=== PATIENT | female | born 1965 | race Caucasian/White ===

== ENCOUNTER → 2017-01-10 | Outpatient (CLI) | payer BC ==
[~2017-01-10] MED LIST: INSULIN PUMP; LISI10TA2 PO; PANT40TA PO; SUCR1TAB PO
== END ==
LOC: RAD 15:01
PROVIDERS: ATTEND Internal Medicine
DX: Z12.31 Encounter for screening mammogram for malignant neoplasm of breast (principal)
CPT/HCPCS: 77067

== ENCOUNTER → 2018-01-19 | Outpatient (CLI) | payer BC ==
--- NOTE | 2018-01-19 15:40 | Diagnostic Imaging Report ---
INDICATION: Routine screening. COMPARISON: Comparison is made with prior exams from 01/10/2017 and 11/30/2015. TECHNIQUE: 2D and 3D bilateral screening mammography was performed with computer-aided detection (CAD) system. FINDINGS: Both breasts are heterogeneously dense, limiting the sensitivity of mammography. The parenchymal pattern is stable. No mass or malignant appearing microcalcifications are seen. The axillae are unremarkable. IMPRESSION: No mammographic features suspicious for malignancy are identified. ACR BI-RADS Category 1: Negative. Result letter will be mailed to the patient. Note: At least 10% of breast cancer is not imaged by mammography. Dictated by: Dictated on workstation # [id number]
== END ==
LOC: RAD 14:41
PROVIDERS: ATTEND Internal Medicine
DX: Z12.31 Encounter for screening mammogram for malignant neoplasm of breast (principal)
CPT/HCPCS: 77067

== ENCOUNTER → 2019-02-05 | Outpatient (CLI) | payer BC ==
--- NOTE | 2019-02-05 18:59 | Diagnostic Imaging Report ---
INDICATION: Routine screening. COMPARISON: Comparison is made with prior mammograms from 01/19/2018 and 01/10/2017. TECHNIQUE: 2-D and 3-D bilateral screening mammography was performed. The current study was also evaluated with a Computer Aided Detection (CAD) system. 3-D tomosynthesis was also performed and reviewed. FINDINGS: Both breasts are heterogeneously dense, limiting the sensitivity of mammography. The parenchymal pattern is stable. No mass or malignant appearing microcalcifications are seen. Axillae are unremarkable. IMPRESSION: No mammographic features suspicious for malignancy are identified. ACR BI-RADS Category 1: Negative. Result letter will be mailed to the patient. Note: At least 10% of breast cancer is not imaged by mammography. Dictated by: Dictated on workstation # [id number]
== END ==
LOC: RAD 15:09
PROVIDERS: ATTEND Internal Medicine
DX: Z12.31 Encounter for screening mammogram for malignant neoplasm of breast (principal)
CPT/HCPCS: 77067

== ENCOUNTER → 2020-03-23 | Outpatient (CLI) | payer BC ==
--- NOTE | 2020-03-23 13:50 | Diagnostic Imaging Report ---
INDICATION: Routine screening. Comparison is made prior mammogram from 02/05/2019 and 01/19/2018. Scattered fibroglandular densities are identified bilaterally. The parenchyma pattern is stable. No mass or malignant appearing microcalcifications are seen. Axillae are unremarkable. IMPRESSION: BI-RADS Category 1 No mammographic features suspicious for malignancy are identified. ACR BI-RADS Category 1: Negative. Result letter will be mailed to the patient. Note: At least 10% of breast cancer is not imaged by mammography. Dictated by: Dictated on workstation # [id number]
== END ==
LOC: RAD 11:30
PROVIDERS: ATTEND Internal Medicine
DX: Z12.31 Encounter for screening mammogram for malignant neoplasm of breast (principal)
CPT/HCPCS: 77063; 77067

== ENCOUNTER → 2021-05-28 | Outpatient (CLI) | payer OTHER ==
[~2021-05-28] MED LIST changes: +IRON DEXTRAN 1,000 MG/NS 250 ML IVPB IV ONE; +IRON DEXTRAN 25 MG/NS 6.25 ML TOTAL VOLUME IV ONE
[2021-05-28 10:15] VITALS: BP 122/50
== END ==
LOC: SDC 09:58
PROVIDERS: ATTEND Internal Medicine
DX: D50.9 Iron deficiency anemia, unspecified (principal)
CPT/HCPCS: 96365

== ENCOUNTER → 2021-05-28 | Outpatient (CLI) | payer BC, OTHER ==
[~2021-05-28] MED LIST changes: -IRON DEXTRAN 1,000 MG/NS 250 ML IVPB IV ONE; -IRON DEXTRAN 25 MG/NS 6.25 ML TOTAL VOLUME IV ONE
--- NOTE | 2021-05-28 11:45 | Diagnostic Imaging Report ---
Indication: Routine screening. Comparison is made with prior mammogram 03/23/2020 and 02/05/2019. 2-D and 3-D bilateral screening mammography was performed with CAD. Both breasts are heterogeneously dense, limiting the sensitivity of mammography. The parenchymal pattern is stable. No mass or malignant-appearing microcalcifications are seen. Axillae are unremarkable. IMPRESSION: BI-RADS Category 1 No mammographic features suspicious for malignancy are identified. ACR BI-RADS Category 1: Negative. Result letter will be mailed to the patient. Note: At least 10% of breast cancer is not imaged by mammography. Dictated by: Dictated on workstation # [id number]
--- NOTE | 2021-05-28 14:24 | Diagnostic Imaging Report ---
PROCEDURE: US PELVIC (NON OB). TECHNIQUE: Multiple Real-time grayscale images were obtained over the pelvis in various projections transabdominally. INDICATION: Menorrhagia. FINDINGS: The uterus is anteverted measuring 10.4 x 6.5 x 5.5 cm. The endometrium is abnormally thickened at 12 mm. There appears to be a fibroid in the lower uterine segment measuring 3.2 x 2.4 x 2.6 cm. The right ovary measures 4.1 x 1.6 x 3.1 cm and the left ovary measures 3.3 x 2.9 x 2.1 cm. There is blood flow to both ovaries. The ovaries contain small follicles. No adnexal mass or free fluid is detected. IMPRESSION: 1. Abnormally thickened endometrium of 12 mm. 2. Uterine fibroid. Dictated by: Dictated on workstation # [id number]
== END ==
LOC: RAD 09:15
PROVIDERS: ATTEND Internal Medicine
DX: Z12.31 Encounter for screening mammogram for malignant neoplasm of breast (principal); D25.9 Leiomyoma of uterus, unspecified; N92.1 Excessive and frequent menstruation with irregular cycle; R93.89 Abnormal findings on diagnostic imaging of other specified body structures
CPT/HCPCS: 76856; 77063; 77067

== ENCOUNTER → 2021-11-21 | Outpatient (CLI) | payer OTHER ==
--- NOTE | 2021-11-21 13:07 | Diagnostic Imaging Report ---
PROCEDURE: Pelvic comp/transvaginal sonogram. TECHNIQUE: Complete transabdominal and transvaginal pelvic ultrasound was performed. In addition, limited pelvic Doppler was performed. INDICATION: Fibroid uterus and endometrial thickening. States performed for follow-up. Correlation is made with prior ultrasound from 05/28/2021. Uterus is anteverted measuring 8.1 x 4.9 x 6.4 cm. There is a questionable fibroid in the right uterus measuring 2.1 x 1.7 x 1.3 cm. This was not deftly seen on prior exam. The fibroid noted in the lower uterine segment on prior study is not as well appreciated on today's study. There are cervical nabothian cysts present. Endometrium is 8 mm in thickness. Right ovary measures 2.5 x 1.6 x 2.1 cm and the left ovary measures 3.1 x 2.0 x 2.6 cm. Both ovaries contain blood flow. No adnexal mass or free fluid is seen. IMPRESSION: 1. Endometrial thickness has improved, now measuring 8 mm compared with 12 mm on prior exam. 2. Right uterine fibroid, new since prior ultrasound. Previously noted fibroid is not well-seen on today's study. Dictated by: Dictated on workstation # [id number]
== END ==
LOC: RAD 10:02
PROVIDERS: ATTEND Obstetrics & Gynecology
DX: D25.1 Intramural leiomyoma of uterus (principal); R93.89 Abnormal findings on diagnostic imaging of other specified body structures
CPT/HCPCS: 76830; 76856

== ENCOUNTER 2022-01-21 05:36 | Outpatient (CLI) | payer OTHER ==
[~2022-01-21] VITALS: Ht 170.2 cm; Wt 78.0 kg
[2022-01-21] MEDS ORDERED: NF-VITD400 PO (12:39)
== END 2022-01-21 12:42 | disposition home or self-care (01) ==
LOC: PREOP 05:36
PROVIDERS: ATTEND Obstetrics & Gynecology
DX: Z01.818 Encounter for other preprocedural examination (principal)

== ENCOUNTER 2022-01-28 08:30 | Day surgery (SDC) | payer OTHER ==
[2022-01-28] VITALS (10 sets, daily range): BP systolic 111–167; BP diastolic 71–92
[~2022-01-28] VITALS: Ht 170 cm; Wt 78.0 kg
[~2022-01-28 08:30] MED LIST changes: +NF-VITD400 PO
[2022-01-28] MEDS ORDERED: LACTATED RINGERS 1,000 ML IV PRN (08:45)
[2022-01-28 09:06] LABS: BASOPHILS # (AUTO) 0.2 10^3/uL (0.0-0.1); BASOPHILS % (AUTO) 4 % (0-10); EOSINOPHILS # (AUTO) 0.2 10^3/uL (0.0-0.3); EOSINOPHILS % (AUTO) 6 % (0-10); HEMATOCRIT 41 % (35-52); HEMOGLOBIN 13.5 g/dL (11.5-16.0); LYMPHOCYTES # (AUTO) 1.4 10^3/uL (1.0-4.0); LYMPHOCYTES % (AUTO) 32 % (12-44); MEAN CORPUSCULAR HEMOGLOBIN 28 pg (25-34); MEAN CORPUSCULAR HGB CONC 33 g/dL (32-36); MEAN CORPUSCULAR VOLUME 84 fL (80-99); MEAN PLATELET VOLUME 9.8 fL (9.0-12.2); MONOCYTES # (AUTO) 0.4 10^3/uL (0.0-1.0); MONOCYTES % (AUTO) 10 % (0-12); NEUTROPHILS % (AUTO) 48 % (42-75); PLATELET COUNT 207 10^3/uL (130-400); WHITE BLOOD COUNT 4.2 10^3/uL (4.3-11.0)
[2022-01-28 09:42] LABS: BAND NEUTROPHILS 0 %; BASOPHILS % (MANUAL) 3 %; EOSINOPHILS % (MANUAL) 9 %; LYMPHOCYTES % (MANUAL) 27 %; MONOCYTES % (MANUAL) 11 %; NEUTROPHILS % (MANUAL) 50 %; RBC MORPH NORMAL
[2022-01-28] MEDS ORDERED: BUPIVACAINE 0.25% 30 ML (SENSORCAINE) VIAL ONE (09:52)
[2022-01-28] MEDS ORDERED: ONDANSETRON 4 MG/2 ML (SDV) Z0FRAN ONE (10:32)
[2022-01-28] MEDS ORDERED: MIDAZOLAM 2 MG/2 ML (VERSED) VIAL ONE (10:32)
[2022-01-28] MEDS ORDERED: LIDOCAINE PF 2% 5 ML (XYLOCAINE) VIAL ONE (10:32)
[2022-01-28] MEDS ORDERED: SEVOFLURANE (ULTANE) 15 ML INHAL SOLN ONE (10:32)
[2022-01-28] MEDS ORDERED: proPOfol 200 MG/20 ML (DIPRIVAN) VIAL IV ONE (10:32)
[2022-01-28] MEDS ORDERED: fentaNYL INJ 100 MCG/2 ML AMP ONE (10:32)
[2022-01-28] MEDS ORDERED: D5 LR IV SOLUTION 1,000 ML IV SCH (11:00)
[2022-01-28] MEDS ORDERED: HYDROcodone/APAP 5 MG/325 MG (LORTAB) TAB PO PRN (11:00)
[2022-01-28] MEDS ORDERED: KETOROLAC 30 MG/ML VIAL IVP ONE (11:00)
[2022-01-28] MEDS ORDERED: ONDANSETRON 4 MG/2 ML (SDV) Z0FRAN IVP PRN ×2 (11:00→11:45)
--- NOTE | 2022-01-28 11:00 | History & Physical-Surgical ---
HPO-Surgical History of Present Illness Chief Complaint: PMB Diagnosis/Surgical Indication: AUB, THICKENED ENDOMETRIUM Procedure: D&C HYSTEROSCOPY Date of Surgery: Jan 28, 2022 Weight (Pounds): 179 Weight (Ounces): 8.0 Height (Feet): 5 Height (Inches): 7.00 Allergies and Home Medications Allergies Coded Allergies: Penicillins (Verified Allergy, Unknown, 01/28/22) Patient Home Medication List Home Medication List Reviewed: Yes Lisinopril (Lisinopril) 10 Mg Tablet, 5 MG PO HS, (Reported) Entered as Reported by: RIAN WILSON on 10/02/13905 Last Action: Reviewed Pantoprazole Sodium (Pantoprazole Sodium) 40 Mg Tablet.dr, 40 MG PO DAILY, (Reported) Entered as Reported by: RIAN WILSON on 10/02/13905 Last Action: Reviewed Vitamin D (Vitamin D3) 10 Mcg (400 Unit) Tablet, 400 MCG PO, (Reported) Entered as Reported by: PACHECO ATKINS on 01/21/22 1239 Last Action: Reviewed [Insulin Pump] , for PRN ELEVATED BLOOD SUGAR, (Reported) Entered as Reported by: RIAN WILSON on 10/02/13905 Last Action: Reviewed Discontinued Medications Sucralfate (Sucralfate) 1 G Tablet, 1 G PO AC AND HS, (Reported) Discontinued Reason: No Longer Taking Entered as Reported by: RIAN WILSON on 10/02/13902 Past Pvclwkp-Nwtlxt-Wlhzlr Hx Patient Social History Smoking Status: Never a Smoker 2nd Hand Smoke Exposure: No Recent Hopitalizations: No Immunizations Up To Date Date of Pneumonia Vaccine: Mar 04, 2009 Date of Influenza Vaccine: Apr 03, 2013 Seasonal Allergies Seasonal Allergies: No Surgeries Yes (D & C) Respiratory No Cardiovascular Yes High Cholesterol, Hypertension Neurological No Reproductive System Hx Reproductive Disorders: No Sexually Transmitted Disease: No HIV/AIDS: No Genitourinary No Gastrointestinal Yes Gastroesophageal Reflux Musculoskeletal No Endocrine History of Endocrine Disorders: Yes Endocrine Disorders: Diabetes, Insulin dep HEENT History of HEENT Disorders: Yes (GLASSES) Cancer No Psychosocial History of Psychiatric Problem: No Behavioral Health Disorders: Anxiety Integumentary History of Skin or Integumenta: No Blood Transfusions History of Blood Disorders: Yes (IRON LEVELS LOW) Family Medical History Family Hx: Family history: Gastrointestinal disease 03 FATHER, Onset:50's - 60 Family history: Hypertension 09 BROTHER, Onset:40's - 50 Exam Vital Signs Vital Signs 01/28/22 08:30 Temp 36.9 Pulse 66 Resp 20 B/P (MAP) 167/92 (117) Pulse Ox 98 O2 Delivery Room Air Capillary Refill : Labs Laboratory Tests Test 01/28/22 08:50 Range/Units White Blood Count 4.2 L 4.3-11.0 10^3/uL Red Blood Count 4.88 3.80-5.11 10^6/uL Hemoglobin 13.5 11.5-16.0 g/dL Hematocrit 41 35-52 % Mean Corpuscular Volume 84 80-99 fL Mean Corpuscular Hemoglobin 28 25-34 pg Mean Corpuscular Hemoglobin Concent 33 32-36 g/dL Red Cell Distribution Width 12.7 10.0-14.5 % Platelet Count 207 130-400 10^3/uL Mean Platelet Volume 9.8 9.0-12.2 fL Immature Granulocyte % (Auto) 0 % Neutrophils (%) (Auto) 48 42-75 % Lymphocytes (%) (Auto) 32 12-44 % Monocytes (%) (Auto) 10 0-12 % Eosinophils (%) (Auto) 6 0-10 % Basophils (%) (Auto) 4 0-10 % Neutrophils # (Auto) 2.0 1.8-7.8 10^3/uL Lymphocytes # (Auto) 1.4 1.0-4.0 10^3/uL Monocytes # (Auto) 0.4 0.0-1.0 10^3/uL Eosinophils # (Auto) 0.2 0.0-0.3 10^3/uL Basophils # (Auto) 0.2 H 0.0-0.1 10^3/uL Immature Granulocyte # (Auto) 0.0 0.0-0.1 10^3/uL Neutrophils % (Manual) 50 % Lymphocytes % (Manual) 27 % Monocytes % (Manual) 11 % Eosinophils % (Manual) 9 % Basophils % (Manual) 3 % Band Neutrophils 0 % Blood Morphology Comment NORMAL General Appearance: Alert, Oriented X3 HEENT: Atraumatic Respiratory: Clear to Auscultation Cardiovascular: Regular Rate Abdominal: Normal Bowel Sounds Neuro: Normal Gait, Normal Speech Psych/Mental Status: Mental Status NL Assessment/Plan Assessment and Plan Diagnosis: AUB Thickened Endometrium P: D and C hysteroscopy Admission Diagnosis Diagnosis: AUB Thickened Endometrium Admission Status: Other (Same Day Surgery) RUDY STEINER DO Jan 28, 2022 11:00
[2022-01-28] MEDS ORDERED: IBUP-1773 PO (11:03)
--- NOTE | 2022-01-28 11:03 | Discharge Inst-Women's Service ---
Discharge Inst-Women's Serv Depart Medication/Instructions New, Converted or Re-Newed RX: Transmitted to Pharmacy Problems Reviewed?: Yes Consults/Follow Up Additional Follow Up: Yes Orders/Referrals Dr. Steiner in 2 weeks Activity Activity: Activity as Tolerated Driving Instructions: You May Drive NO SMOKING: NO SMOKING Nothing Inside Vagina: No Douching, No [place], No Tampons Diet Discharge Diet: No Restrictions Symptoms to Report to : Bleeding Excessive, Pain Increased, Fever Over 101 Degrees F, Vaginal Bleeding Increase, Questions/Concerns For Any Problems or Questions: Contact Your Physician RUDY STEINER DO Jan 28, 2022 11:03
[2022-01-28] MEDS ORDERED: GLYCOPYRROLATE 0.2 MG/ML (ROBINUL) 2 ML VIAL ONE (11:18)
[2022-01-28] MEDS ORDERED: KETOROLAC 30 MG/ML VIAL ONE (11:27)
[2022-01-28] MEDS ORDERED: HYDROmorphone 2 MG/ML VIAL (DILAUDID) IV ONE (11:45)
--- NOTE | 2022-01-28 13:00 | Anesthesia-General Post-Op ---
General Patient Condition Mental Status/LOC: Same as Preop Cardiovascular: Satisfactory Nausea/Vomiting: Absent Respiratory: Satisfactory Pain: Controlled Complications: Absent Post Op Complications Complications None Follow Up Care/Instructions Patient Instructions None needed. Anesthesia/Patient Condition Patient Condition Patient is doing well, no complaints, stable vital signs, no apparent adverse anesthesia problems. No complications reported per nursing. D/C home per [facility] [place] Criteria: Yes SANDRA GOOD CRNA Jan 28, 2022 13:00
--- NOTE | 2022-01-28 16:13 | OPERATIVE REPORT ---
DATE OF SERVICE: 01/28/2022 PREOPERATIVE DIAGNOSES: 1. A 56-year-old female with postmenopausal bleeding. 2. Thickened endometrium on ultrasound. POSTOPERATIVE DIAGNOSES: 1. A 56-year-old female with postmenopausal bleeding. 2. Thickened endometrium on ultrasound. PROCEDURE: D and C with hysteroscopy. SURGEON: Rudy Steiner DO ANESTHESIA: LMA general. ESTIMATED BLOOD LOSS: Minimal. URINE OUTPUT: 100 mL drained at start of the procedure. FLUIDS: 800 mL of lactated Ringer's solution. FINDINGS: Grossly normal-appearing external female genitalia, grossly normal-appearing endometrial cavity. Bilateral patent tubal ostia appreciated on hysteroscopy. SPECIMEN SENT: Endometrial curettings. INDICATIONS FOR PROCEDURE: This 56-year-old female is a patient consulted to my office for postmenopausal bleeding episodes as well as thickened endometrium on ultrasound. The patient reports undergoing menopause around age 50 to 51 and then started having bleeding episodes more recently, this prompted an ultrasound and a followup with her primary care provider, who referred her to my office for further evaluation. I discussed with the patient need for endometrial sampling due to the thickness of the ultrasound endometrium. We discussed proceeding with hysteroscopy at the same time. Risks of procedure were discussed with the patient in detail including risk of bleeding, infection, damaging the uterus itself, postoperative complications, recovery time frame-time all were discussed and covered with the patient in detail. All of her questions were answered, consent was obtained, the patient was taken to the operating room. OPERATIVE REPORT IN DETAIL: Once in the operating room, anesthesia was found to be adequate, placed in dorsal lithotomy position, prepped and draped in normal sterile fashion. Timeout was performed. The bladder was drained using straight catheterization. A weighted speculum inserted to the patient's vagina. Right angle retractor was used to visualize the cervix. It was grasped at 12 o'clock position using a long Allis clamp. I then performed paracervical block at 3 and 9 o'clock positions on the cervix. Care was taken to aspirate for injecting 5 mL of 0.25% Marcaine injected into each site. I then gently sound the uterine cavity, depth was found to be 8 cm, then gently dilated the cervix using Hanks dilators to maximum dilatation of approximately 8 mm, at which point I advanced my hysteroscopy scope into the uterus using normal saline as my visual medium and the [employer] fluid management system. I am able to visualize the endometrial cavity, which appears grossly normal with the potential of a possible low lying polyp on the lower uterine segment anteriorly. Otherwise, grossly normal-appearing uterus. I then removed the hysteroscope and proceeded with a gentle curettage of all of the endometrial surfaces collecting as much endometrial tissue as I can until a gentle uterine cry is appreciated. All this tissue was collected and sent as endometrial curettings. There was no active bleeding noted from the cervix or any surrounding structures. At that point, I removed all the instruments from the patient's vagina. The patient tolerated the procedure well and sent to recovery area in stable condition. Lap and sponge counts were correct at the end of procedure. Instrument counts correct as well. Job ID: [id number] DocumentID: [id number] Dictated Date: 01/28/2022 11:52:59 Screwmaker Automatic Date: 01/28/2022 16:12:31 Dictated By: RUDY STEINER DO
== END 2022-01-28 13:31 ==
LOC: SDC 08:30
PROVIDERS: ATTEND Obstetrics & Gynecology
DX: N85.00 Endometrial hyperplasia, unspecified (principal); N85.8 Other specified noninflammatory disorders of uterus; N93.8 Other specified abnormal uterine and vaginal bleeding; N95.9 Unspecified menopausal and perimenopausal disorder
CPT/HCPCS: 36415; 82947; 85007; 85027; 86850; 86900; 86901; 87081

== ENCOUNTER → 2022-05-08 | Outpatient (CLI) | payer OTHER ==
[~2022-05-08] VITALS: Wt 78.0 kg
[~2022-05-08] MED LIST changes: +IBUP-1773 PO; +IRON DEXTRAN 25 MG/NS 6.25 ML TOTAL VOLUME IV ONE; +IRON DEXTRAN INJECTION 975 MG in NS (IVPB) 250 ML IV ONE
[2022-05-08 11:00] VITALS: BP 115/76
== END ==
LOC: SDC 10:42
PROVIDERS: ATTEND Internal Medicine
DX: D50.9 Iron deficiency anemia, unspecified (principal)
CPT/HCPCS: 96365

== ENCOUNTER → 2022-06-03 | Outpatient (CLI) | payer OTHER ==
[~2022-06-03] MED LIST changes: -IRON DEXTRAN 25 MG/NS 6.25 ML TOTAL VOLUME IV ONE; -IRON DEXTRAN INJECTION 975 MG in NS (IVPB) 250 ML IV ONE
--- NOTE | 2022-06-03 12:21 | Diagnostic Imaging Report ---
Indication: Routine screening. Comparison is made with prior mammogram from 05/28/2021 and 03/23/2020. 2-D and 3-D bilateral screening mammography was performed with CAD. CAD is utilized. The current study was also evaluated with a Computer Aided Detection (CAD) system. Both breasts are heterogeneously dense, limiting the sensitivity of mammography. The parenchymal pattern is stable. No mass or malignant-appearing microcalcifications are seen. There are occasional benign calcifications. Axillae are unremarkable. IMPRESSION: BI-RADS Category 2 No mammographic features suspicious for malignancy are identified. ACR BI-RADS Category 2: Benign findings. Result letter will be mailed to the patient. Note: At least 10% of breast cancer is not imaged by mammography. Dictated by: Dictated on workstation # [id number]
== END ==
LOC: RAD 10:11
PROVIDERS: ATTEND Internal Medicine
DX: Z12.31 Encounter for screening mammogram for malignant neoplasm of breast (principal)
CPT/HCPCS: 77063; 77067

== ENCOUNTER 2023-05-30 12:57 | Outpatient (CLI) | payer OTHER ==
[2023-05-30 13:00] VITALS: BP 152/56
[2023-05-30] MEDS ORDERED: IRON DEXTRAN 25 MG/NS 6.25 ML TOTAL VOLUME IV ONE ×3 (13:30)
[2023-05-30] MEDS ORDERED: IRON DEXTRAN 1,000 MG/NS 250 ML IVPB IV ONE ×2 (13:45)
== END 2023-05-30 15:25 | disposition home or self-care (01) ==
LOC: SDC 12:57
PROVIDERS: ATTEND Internal Medicine
DX: E61.1 Iron deficiency (principal)
CPT/HCPCS: 96365